=== PATIENT | male | born 1975 | race Caucasian/White ===

== ENCOUNTER 2018-03-06 12:39 | Emergency (ER) | payer OTHER ==
[~2018-03-06] VITALS: Ht 152.4 cm; Wt 70.8 kg
[2018-03-06 12:51] VITALS: Ht 152.4 cm; Wt 70.8 kg
[2018-03-06 14:50] VITALS: BP 144/90
== END 2018-03-06 14:50 | disposition home or self-care (01) ==
LOC: ED 12:39
DX: S49.82XA Other specified injuries of left shoulder and upper arm, initial encounter (principal); X58.XXXA Exposure to other specified factors, initial encounter; Y93.89 Activity, other specified; Y92.89 Other specified places as the place of occurrence of the external cause; Y99.8 Other external cause status
CPT/HCPCS: 20552; J3301; J3490